=== PATIENT | female | born 1930 | race African-American/Black ===

== ENCOUNTER → 2016-12-16 | Outpatient (CLI) | payer MEDICARE, BC ==
--- NOTE | 2016-12-16 14:08 | RADIOLOGY REPORT (SQ) ---
EXAM DESCRIPTION: CT ABD/PELVIS WITH IV ORAL COMPLETED DATE/TIME: 12/16/2016 1:46 pm REASON FOR STUDY: ABDOMINAL PAIN R10.84 GENERALIZED ABDOMINAL PAIN COMPARISON: 04/15/2016 TECHNIQUE: CT scan of the abdomen and pelvis performed using helical scanning technique with dynamic intravenous contrast injection. No oral contrast. Images reviewed with lung, soft tissue, and bone windows. Reconstructed coronal and sagittal MPR images reviewed. Delayed images for evaluation of the urinary system also acquired. All images stored on PACS. All CT scanners at this facility use dose modulation, iterative reconstruction, and/or weight based d osing when appropriate to reduce radiation dose to as low as reasonably achievable (ALARA). [facility]: Dose Right [facility]: CareDose [facility]: Dose Right [facility]: Teradose 4D [facility]: MessageGate CONTRAST TYPE AND DOSE: contrast/concentration: Isovue 370.00 mg/ml; Total Contrast Delivered: 80.0 ml; Total Saline Delivered: 67.0 ml RENAL FUNCTION: BUN 10, creatinine 0.7 RADIATION DOSE: Up-to-date CT equipment and radiation dose reduction techniques were employed. CTDIv ol: 10.2 - 11.9 mGy. DLP: 1006 mGy-cm.. LIMITATIONS: None. FINDINGS: LOWER CHEST: No significant findings. No nodules or infiltrates. LIVER: Normal size. No masses or dilated ducts. SPLEEN: Normal size. No focal lesions. PANCREAS: No masses. No significant calcifications. No adjacent inflammation or peripancreatic fluid collections. Pancreatic duct not dilated. GALLBLADDER: There are small layering gallstones. ADRENAL GLANDS: No significant masses or asymmetry. RIGHT KIDNEY AND URETER: No solid masses. No significant calcifications. No hydronephrosis or hyd roureter. LEFT KIDNEY AND URETER: No solid masses. No significant calcifications. No hydronephrosis or hydr oureter. AORTA AND VESSELS: No aneurysm. No dissection. Renal arteries, SMA, celiac without stenosis. RETROPERITONEUM: No retroperitoneal adenopathy, hemorrhage or masses. BOWEL AND PERITONEAL CAVITY: No masses or inflammatory changes. No free fluid or peritoneal masses. Scattered diverticuli are noted. No bowel wall thickening or mesenteric inflammation. APPENDIX: Normal. PELVIS: The bladder is distended but unchanged from prior study. ABDOMINAL WALL: There is an umbilical hernia containing omental fat and a small amount of fluid stabl e from prior exam. BONES: No significant or acute findings. OTHER: No other significant finding. IMPRESSION: Mild bladder distention stable from March 2016. No acute findings in the abdomen or p jose. TECHNICAL DOCUMENTATION: JOB ID: [id number] Quality ID # [id number]: Final reports with documentation of one or more dose reduction techniques (e.g., Au tomated exposure control, adjustment of the mA and/or kV according to patient size, use of iterative reconstruction technique) 2010 [employer] All Rights Reserved
== END ==
LOC: RAD 10:07
PROVIDERS: ATTEND Nurse Practitioner
DX: R10.84 Generalized abdominal pain (principal)
CPT/HCPCS: 74177

== ENCOUNTER 2019-03-01 10:48 | Emergency (ER) | payer MEDICARE, BC ==
[2019-03-01] MEDS ORDERED: ACETAMINOPHEN 325 MG TABLET PO ONE (12:17)
--- NOTE | 2019-03-01 12:20 | ER Document Report ---
ED Medical Screen (RME) - General Chief Complaint: Fall Stated Complaint: FALL/BODY PAIN Time Seen by Provider: 03/01/19 12:15 Primary Care Provider: RADHA ALEXIS FNP [Primary Care Provider] - Follow up as needed Mode of Arrival: Wheelchair Information source: Patient, Relative Notes: 88-year-old female presented to ED for complaint of fall this morning tripping over the carpet. She has pain in her right face right hand right knee right elbow. Patient is alert oriented respirations regular and unlabored speaking in full sentences. I have greeted and performed a rapid initial assessment of this patient. A comprehensive ED assessment and evaluation of the patient, analysis of test results and completion of medical decision making process will be conducted by an additional ED providers. TRAVEL OUTSIDE OF THE [place] IN LAST 30 DAYS: No - Related Data Allergies/Adverse Reactions: codeine [Codeine] Allergy (Verified 03/01/19 10:49) Sulfa (Sulfonamide Antibiotics) Allergy (Verified 03/01/19 10:49) Past Medical History - Social History Frequency of alcohol use: None Drug Abuse: None - Past Medical History Cardiac Medical History: Reports: Hx Heart Attack, Hx Hypercholesterolemia, Hx Hypertension Pulmonary Medical History: Reports: Hx Asthma Neurological Medical History: Denies: Hx Cerebrovascular Accident Endocrine Medical History: Denies: Hx Diabetes Mellitus Type 2 GI Medical History: Reports: Hx Diverticulitis Psychiatric Medical History: Denies: Hx Depression Past Surgical History: Reports: Hx Hysterectomy, Hx Tubal Ligation - Immunizations Hx Diphtheria, Pertussis, Tetanus Vaccination: - unknown Physical Exam - Vital signs Vitals: Temp Pulse Resp BP Pulse Ox 98.8 F 62 20 170/67 H 95 03/01/19 11:19 03/01/19 11:19 03/01/19 11:19 03/01/19 11:19 03/01/19 11:19 Course - Vital Signs Vital signs: Temp Pulse Resp BP Pulse Ox 98.8 F 62 20 170/67 H 95 03/01/19 11:19 03/01/19 11:19 03/01/19 11:19 03/01/19 11:19 03/01/19 11:19 Doctor's Discharge - Discharge Referrals: RADHA ALEXIS FNP [Primary Care Provider] - Follow up as needed
--- NOTE | 2019-03-01 14:30 | RADIOLOGY REPORT (SQ) ---
EXAM DESCRIPTION: ELBOW RIGHT OVER 2 VIEWS COMPLETED DATE/TIME: 03/01/2019 2:05 pm REASON FOR STUDY: fall pain injury COMPARISON: None. NUMBER OF VIEWS: Four views. TECHNIQUE: AP, lateral, and both oblique radiographic images acquired of the right elbow. LIMITATIONS: None. FINDINGS: MINERALIZATION: Normal. BONES: No acute fracture or dislocation. No worrisome bone lesions. JOINT: There is a joint effusion. SOFT TISSUES: No soft tissue swelling. No foreign body. OTHER: No other significant finding. IMPRESSION: Joint effusion. No fracture is seen. Correlate clinically. TECHNICAL DOCUMENTATION: JOB ID: [id number] [employer]- All Rights Reserved Reading location - IP/workstation name: [email or web address]
--- NOTE | 2019-03-01 14:31 | RADIOLOGY REPORT (SQ) ---
EXAM DESCRIPTION: KNEE RIGHT 4 VIEWS COMPLETED DATE/TIME: 03/01/2019 2:05 pm REASON FOR STUDY: fall pain injury COMPARISON: None. NUMBER OF VIEWS: Four views. TECHNIQUE: AP, lateral, and both oblique radiographic images acquired of the right knee. LIMITATIONS: None. FINDINGS: MINERALIZATION: Normal. BONES: No acute fracture or dislocation. No worrisome bone lesions. JOINT: No effusion. SOFT TISSUES: No soft tissue swelling. No radio-opaque foreign body. OTHER: No other significant finding. IMPRESSION: NEGATIVE STUDY OF THE RIGHT KNEE. NO RADIOGRAPHIC EVIDENCE OF ACUTE INJURY. TECHNICAL DOCUMENTATION: JOB ID: [id number] [employer]- All Rights Reserved Reading location - IP/workstation name: [email or web address]
--- NOTE | 2019-03-01 14:32 | RADIOLOGY REPORT (SQ) ---
EXAM DESCRIPTION: HAND RIGHT 3 VIEWS COMPLETED DATE/TIME: 03/01/2019 2:05 pm REASON FOR STUDY: fall pain injury COMPARISON: None. EXAM PARAMETERS: NUMBER OF VIEWS: Three views. TECHNIQUE: AP, lateral and oblique radiographic images acquired of the right hand. LIMITATIONS: None. FINDINGS: MINERALIZATION: Normal. BONES: No acute fracture or dislocation. No worrisome bone lesions. JOINTS: No effusions. SOFT TISSUES: No soft tissue swelling. No foreign body. OTHER: No other significant finding. IMPRESSION: NEGATIVE STUDY OF THE RIGHT HAND. NO RADIOGRAPHIC EVIDENCE OF ACUTE INJURY. TECHNICAL DOCUMENTATION: JOB ID: [id number] [employer]- All Rights Reserved Reading location - IP/workstation name: [email or web address]
--- NOTE | 2019-03-01 14:34 | RADIOLOGY REPORT (SQ) ---
EXAM DESCRIPTION: FACIAL BONES COMPLETED DATE/TIME: 03/01/2019 2:07 pm REASON FOR STUDY: fall pain injury COMPARISON: None. NUMBER OF VIEWS: Three view. TECHNIQUE: Images of the facial bones acquired. LIMITATIONS: None. FINDINGS: ORBITS: No fracture. No foreign body. SINUSES: No mucosal thickening. No air fluid levels. FACIAL BONES: No fracture. OTHER: No other significant finding. IMPRESSION: NO FOREIGN BODY OR FRACTURE OF THE FACIAL BONES. TECHNICAL DOCUMENTATION: JOB ID: [id number] [employer]- All Rights Reserved Reading location - IP/workstation name: [email or web address]
--- NOTE | 2019-03-01 15:25 | ER Document Report ---
ED Fall - General Chief Complaint: Fall Stated Complaint: FALL/BODY PAIN Time Seen by Provider: 03/01/19 12:15 Primary Care Provider: RADHA ALEXIS FNP [Primary Care Provider] - Follow up as needed Mode of Arrival: Wheelchair Information source: Patient, Relative Notes: Patient is an 88-year-old female with a history of hypertension, high cholesterol who presents to the emergency department after a fall. Patient states around 430 this morning she was ambulating down her hallway when she tripped over a piece of rolled up carpet. Patient states she did fall onto a carpeted floor and onto her right side. Patient denies any loss of consciousness. Patient does report having pain to the right forehead, right knee, right elbow and right distal aspect of the fifth digit. Patient denies use of blood thinners but does report taking a baby aspirin daily. Patient and family who are at the bedside deny change in mental status, vomiting, or any change. Patient has been ambulating appropriately. Patient states her tetanus shot is up to date. TRAVEL OUTSIDE OF THE [place] IN LAST 30 DAYS: No - Related data Allergies/Adverse Reactions: codeine [Codeine] Allergy (Verified 03/01/19 10:49) Sulfa (Sulfonamide Antibiotics) Allergy (Verified 03/01/19 10:49) Past Medical History - General Information source: Patient, Relative - Social History Smoking Status: Unknown if Ever Smoked Frequency of alcohol use: None Drug Abuse: None Lives with: Family Family History: Reviewed & Not Pertinent Patient has suicidal ideation: No Patient has homicidal ideation: No - Past Medical History Cardiac Medical History: Reports: Hx Heart Attack, Hx Hypercholesterolemia, Hx Hypertension Pulmonary Medical History: Reports: Hx Asthma EENT Medical History: Reports: None Neurological Medical History: Reports: None. Denies: Hx Cerebrovascular Accident Endocrine Medical History: Reports: None. Denies: Hx Diabetes Mellitus Type 2 Renal/ Medical History: Reports: None Malignancy Medical History: Reports: None GI Medical History: Reports: Hx Diverticulitis Musculoskeletal Medical History: Reports None Skin Medical History: Reports None Psychiatric Medical History: Reports: None Denies: Hx Depression Traumatic Medical History: Reports: None Infectious Medical History: Reports: None Past Surgical History: Reports: Hx Hysterectomy, Hx Tubal Ligation - Immunizations Hx Diphtheria, Pertussis, Tetanus Vaccination: - unknown Hx Pneumococcal Vaccination: 06/23/11 Review of Systems - Review of Systems Constitutional: No symptoms reported EENT: See HPI Cardiovascular: No symptoms reported Respiratory: No symptoms reported Gastrointestinal: No symptoms reported Genitourinary: No symptoms reported Female Genitourinary: No symptoms reported Musculoskeletal: See HPI Skin: See HPI Hematologic/Lymphatic: No symptoms reported Neurological/Psychological: No symptoms reported Physical Exam - Vital signs Vitals: Temp Pulse Resp BP Pulse Ox 98.8 F 62 20 170/67 H 95 03/01/19 11:19 03/01/19 11:19 03/01/19 11:19 03/01/19 11:19 03/01/19 11:19 Interpretation: Hypertensive - Notes Notes: GENERAL: Well-appearing, well-nourished and in no acute distress. HEAD: Abrasion and small hematoma noted to the right forehead, no crepitus/deformity palpated to the skull, ecchymotic rash noted to the occipital area - patient reports that this is normal and a brad for her, normocephalic. EYES: Pupils equal round and reactive to light, 3 mm bilaterally, extraocular movements intact, sclera anicteric, conjunctiva are normal. ENT: TMs normal, nares patent, oropharynx clear without exudates. Moist mucous membranes. NECK: Normal range of motion, supple without lymphadenopathy or JVD. LUNGS: Breath sounds clear to auscultation bilaterally and equal. No wheezes rales or rhonchi. HEART: Regular rate and rhythm without murmurs, rubs or gallops. ABDOMEN: Soft, nontender, normoactive bowel sounds. No guarding, no rebound. No masses appreciated. BACK: No cervical, thoracic, lumbar midline tenderness. No saddle anesthesia, normal distal neurovascular exam. GENITOURINARY: Deferred. EXTREMITIES: FROM to right elbow without edema, ecchymosis, erythema, abrasion. There is no tenderness noted to the olecranon. Patient has an abrasion to the right patella, patient does have full range of motion with flexion and extension to the right knee, patient is able to ambulate with a steady gait. Patient does have bruising noted to the distal aspect and proximal aspect of the fifth digit of the right hand. Patient is able to bend at the DIP and PIP joint. There is no laceration or abrasion. Patient does report a slight deformity to the tip of the fifth digit as she does have osteoarthritis and reports that the bruising is the only difference. NEUROLOGICAL: Cranial nerves II through XII grossly intact. Normal speech, normal gait. PSYCH: Normal mood, normal affect. SKIN: Warm, Dry, normal turgor, no rashes or lesions noted. Course - Re-evaluation Re-evalutation: 03/01/19 15:58 Upon initial assessment patient is resting comfortably on a chair and in no acute distress. Patient's x-rays were negative. Patient's physical exam was reassuring. Wound care has been ordered. Patient reports her tetanus shot is up-to-date. - Vital Signs Vital signs: Temp Pulse Resp BP Pulse Ox 98.8 F 62 20 170/67 H 95 03/01/19 11:19 03/01/19 11:19 03/01/19 11:19 03/01/19 11:19 03/01/19 11:19 - Diagnostic Test Radiology reviewed: Reports reviewed Radiology results interpreted by me: 03/01/19 15:23 Elbow X-Ray 03/01/19 12:16 IMPRESSION: Joint effusion. No fracture is seen. Correlate clinically. Facial Bones X-Ray 03/01/19 12:16 IMPRESSION: NO FOREIGN BODY OR FRACTURE OF THE FACIAL BONES. Hand X-Ray 03/01/19 12:16 IMPRESSION: NEGATIVE STUDY OF THE RIGHT HAND. NO RADIOGRAPHIC EVIDENCE OF ACUTE INJURY. Knee X-Ray 03/01/19 12:16 IMPRESSION: NEGATIVE STUDY OF THE RIGHT KNEE. NO RADIOGRAPHIC EVIDENCE OF ACUTE INJURY. Discharge - Discharge Clinical Impression: Right hand pain Fall Qualifiers: Encounter type: initial encounter Qualified Code(s): W19.XXXA - Unspecified f all, initial encounter Abrasion of head Qualifiers: Encounter type: initial encounter Qualified Code(s): S00.91XA - Abrasion of unspecified part of head, initial encounter Knee pain, right Qualifiers: Chronicity: acute Qualified Code(s): M25.561 - Pain in right knee Finger contusion Qualifiers: Encounter type: initial encounter Finger: little finger Damage to nail status: without damage Laterality: right Qualified Code(s): S60.051A - Contusion of right little finger without damage to nail, initial encounter Condition: Stable Disposition: HOME, SELF-CARE Additional Instructions: Today you were seen in the emergency department after a fall. We did obtain imaging of the face, right elbow, right knee and right hand. All of the imaging was negative for any acute fracture or dislocation. You do have an abrasion to the right knee and right side of the forehead. Please keep these clean and dry and use an [id number] antibiotic ointment. You do have bruising to the right fifth digit on the right hand. At this time there is no acute fracture or dislocation. Since you did fall on your right side this could be a contusion which is a bruise due to the fall. Use Tylenol or Motrin as needed for pain. You may ice the areas of pain. If you develop any new or worsening symptoms please return to the emergency department. He will be placed on head injury precautions such as persistent vomiting, difficulty arousing, continue to worsening headache, unequal pupil side, confusion, seizures. If you develop any of the symptoms please return to the emergency department immediately. Please follow-up with your primary care physician. Head Injury Your child's examination shows no evidence of brain injury. The child can therefore be safely observed at home. Give clear liquids only for the first eight hours. Acetaminophen or ibuprofen can safely be given for pain. Follow the directions on the bottle. Do not give any medication that may alter her/his level of alertness. Limit activity for the first 24 hours -- bed rest is advisable at first. Several times during the first 24 hours, check the patient to see if the pupils are equal in size to each other, that the patient is easily arousable, and responds normally. Contact your doctor or go to the hospital if any of the following things occur: Persistent or projectile vomiting, a seizure, confusion, unequal pupil size, difficulty in arousing the patient, worsening or continued headache, or failure to improve as expected. Head Injury Precautions At this point, there is no evidence that your head injury is serious. Observation is necessary, however. Take only clear liquids for the first few hours, unless told otherwise by the doctor. If no pain medication was prescribed, you may take acetaminophen according to the directions on the bottle. Do not take any medication that may alter your level of alertness (unless you've discussed it with the doctor first). Limit activity for the first 24 hours. Bed rest is best. During the first 24 hours, check to see approximately every two to three hours that the patient is easily arousable, responds normally, and can perform common tasks such as walking without difficulty. Contact your doctor or go to the hospital if any of the following things occur: Persistent vomiting, difficulty in arousing the patient, worsening or continued headache, or failure to improve as expected. Head injuries can cause symptoms that persist for a few days or even a few weeks. Referrals: RADHA ALEXIS FNP [Primary Care Provider] - Follow up as needed
[2019-03-01 16:15] VITALS: BP 158/68
== END 2019-03-01 16:18 | disposition home or self-care (01) ==
LOC: ER 10:48
DX: S60.051A Contusion of right little finger without damage to nail, initial encounter (principal); S00.91XA Abrasion of unspecified part of head, initial encounter; M25.561 Pain in right knee; M79.641 Pain in right hand; M79.10 Myalgia, unspecified site; M25.40 Effusion, unspecified joint; W01.0XXA Fall on same level from slipping, tripping and stumbling without subsequent striking against object, initial encounter; Y92.009 Unspecified place in unspecified non-institutional (private) residence as the place of occurrence of the external cause; I10 Essential (primary) hypertension; E78.00 Pure hypercholesterolemia, unspecified; Z88.2 Allergy status to sulfonamides; Z88.6 Allergy status to analgesic agent; Z90.710 Acquired absence of both cervix and uterus; I25.2 Old myocardial infarction
CPT/HCPCS: 73080; 70150; 73130; 73564; A9270; 99283